=== PATIENT | female | born 1985 | race Caucasian/White ===

== ENCOUNTER 2019-06-20 07:09 | Day surgery (SDC) | payer OTHER ==
[~2019-06-20] VITALS: Ht 157.5 cm; Wt 109.8 kg
[~2019-06-20 07:09] MED LIST: SODIUM CHLORIDE 0.9% 1000ML 1,000 ML IV ONE
[2019-06-20 07:47] VITALS: BP 146/77
[2019-06-20 09:10] VITALS: BP 92/46
[2019-06-20 09:15] VITALS: BP 122/58
[2019-06-20 09:20] VITALS: BP 120/65
[2019-06-20 09:25] VITALS: BP 115/80
[2019-06-20 09:30] VITALS: BP 118/63
== END 2019-06-20 09:40 | disposition home or self-care (01) ==
LOC: DAH 07:09 → ENDO 07:09
PROVIDERS: ATTEND Surgery
DX: K21.9 Gastro-esophageal reflux disease without esophagitis (principal); K44.9 Diaphragmatic hernia without obstruction or gangrene; E78.00 Pure hypercholesterolemia, unspecified; E66.01 Morbid (severe) obesity due to excess calories; Z82.49 Family history of ischemic heart disease and other diseases of the circulatory system; Z68.41 Body mass index [BMI] 40.0-44.9, adult
CPT/HCPCS: 36415; 43235; 84703; A4606; J7030

== ENCOUNTER → 2019-06-30 | Outpatient (CLI) | payer OTHER ==
[~2019-06-30] VITALS: Ht 17.8 cm; Wt 112.9 kg
--- NOTE | 2019-06-30 11:43 | NUR ---
RD Bariatric Consult Visit 1/ Pt Obesity Grade II (BMI 39.0). Pt with Hx of high cholesterol and Gestational Diabetes. Pt currently on contraceptive but has plans for another child in the future. Patient is also taking vitamins at this time. Pt has also completed previous Bariatric program education courses through [facility], as per Coordinator. Pt seeking weight loss surgery for improved quality of life. Pt states has struggled with weight since childhood and states weight would fluctuate. Pt recollects dieting, diet shots and medications from [place] in attempt to lose weight, however attempts were not successful overall. Pt reports having Gestational diabetes with last as "wake up" call to have Bariatric procedure. Pt has friends who have had the procedure with success and recommendation for her as well. Pt believes this will be the boost she needs to aid in weight loss for prevention of disease. Pt is currently a [id number] mother with an infant (3mos.) and one toddler (3 years old). Pt prefers to cook meals at home, however has not had the time or energy recently after giving . Pt and usually order fast food and eat regularly at 's family-owned [employer] for dinner time meal. Pt also has no time or energy for physical activity. 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 Pt Postprocedure weight loss goal is to lose 100lbs. Pt has prepared for lifestyle modification through previous courses and Dietitian visits. 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 Pt with strong support system at home with , and also supportive family that lives locally. RD provided Healthy My Plate diet education as well as Healthy Meal planning with the Pt to encourage importance of developing long-lasting, healthful lifestyle habits that Pt is able to maintain. Pt has set goals to meet for the upcoming month to review during follow up visit: 1) Decreasing soft drink consumption to 1 drink per week 2) Decreasing pasta intake down to 1 meal per week 3) Eating less pastries by not having them in the house. Addendum: 06/30/19 at [address] RD Amended: Links added.
--- NOTE | 2019-07-06 15:28 | NUR ---
NIKOLAI Addendum Addendum Clarification: Patient Initial Assessment and Diet education, lasted 1 hour. Addendum: 07/06/19 at [address] RD Amended: Links added.
== END | disposition home or self-care (01) ==
LOC: DTH 09:23
PROVIDERS: ATTEND Surgery
DX: E66.9 Obesity, unspecified (principal); E11.9 Type 2 diabetes mellitus without complications
CPT/HCPCS: 97802

== ENCOUNTER → 2019-07-11 | Outpatient (CLI) | payer OTHER ==
[~2019-07-11] MED LIST changes: +ACET-66 PO; +NORE0.3518 PO; -SODIUM CHLORIDE 0.9% 1000ML 1,000 ML IV ONE
--- NOTE | 2019-07-11 11:14 | NUR ---
BARIATRIC PRE-OP DIET EDUCATION TIME OF VISIT: 10:30-11:[address] PROVIDED BARIATRIC MEAL PLANNING DIET EDUCATION WITH [employer]GHAN TRANSLATION. RD REVIEWED PRE-OP AND POST OP DIETARY PHASES WITH THE PATIENT. PT WITH MULTIPLE QUESTIONS. RD ANSWERED ALL OF PT QUESTIONS. PT VERBALIZED UNDERSTANDING. PT TO BEGIN PRE-OP DIET 07/18/19. RD TO FOLLOW UP POST-OP. RD PROVIDED CONTACT INFORMATION FOR PT TO CONTACT QUESTIONS OR CONCERNS ARISE.
== END | disposition home or self-care (01) ==
LOC: DTH 10:00
PROVIDERS: ATTEND Surgery
DX: E11.9 Type 2 diabetes mellitus without complications (principal); E66.09 Other obesity due to excess calories
CPT/HCPCS: 97803

== ENCOUNTER 2019-07-20 09:00 | Inpatient (IN) | payer OTHER ==
[~2019-07-20] VITALS: Ht 165.1 cm; Wt 110.8 kg
[2019-07-20 10:41] LABS: BASOPHILS % (AUTO) 0.7 % (0.0-5.0); HEMATOCRIT 44.3 % (36-48); LYMPHOCYTES % (AUTO) 33.8 % (21.0-51.0); MEAN CORPUSCULAR HEMOGLOBIN 30.6 pg (27.0-33.0); MEAN CORPUSCULAR HGB CONC 34.7 g/dL (32.0-36.0); MEAN CORPUSCULAR VOLUME 87.9 fL (79-99); MONOCYTES % (AUTO) 6.2 % (3.0-13.0); NEUTROPHILS % (AUTO) 57.3 % (40.0-77.0); PLATELET COUNT (AUTO) 260 K/uL (130-400); RED BLOOD CELL COUNT(AUTO) 5.04 MIL/uL (4.00-5.50); WHITE BLOOD COUNT (AUTO) 6.3 K/uL (4.8-10.8)
[2019-07-20] MEDS ORDERED: ACET-66 PO (10:52)
[2019-07-20] MEDS ORDERED: NORE0.3518 PO (10:52)
[2019-07-20 10:54] LABS: CREATININE 0.9 mg/dL (0.5-1.5); POTASSIUM 3.7 mmol/L (3.5-5.1)
[2019-07-20 11:00] VITALS: BP 110/69
[2019-07-25] VITALS (17 sets, daily range): BP systolic 116–144; BP diastolic 62–81
[2019-07-25] MEDS ORDERED: LACTATED RINGERS 1000ML 1,000 ML IV ONE (10:14)
[2019-07-25] MEDS: CEFAZOLIN SODIUM 1 GM VIAL ONE ×2 (10:26→11:56)
[2019-07-25] MEDS ORDERED: BUPIVACAINE/PF 0.5% 30ML VIAL ONE (10:59)
[2019-07-25] MEDS ORDERED: LIDOCAINE PF 2% 5ML ABBOJECT ONE (11:32)
[2019-07-25] MEDS ORDERED: PROPOFOL 10 MG/ML 20ML VIAL IV ONE (11:33)
[2019-07-25] MEDS ORDERED: ROCURONIUM 10MG/1ML SYR 10 MG/ML ML ONE ×2 (11:33→12:42)
[2019-07-25] MEDS ORDERED: FENTANYL CITRATE PF 50 MCG/1 ML 5ML AMP IV ONE ×2 (11:33→12:41)
[2019-07-25] MEDS ORDERED: MIDAZOLAM HCL 1 MG/ML 2ML VIAL ONE (11:33)
[2019-07-25] MEDS ORDERED: DEXAMETHASONE SOD PHOSPHATE 10MG/ML 1ML VIAL ONE (12:24)
[2019-07-25] MEDS ORDERED: GLYCOPYRROLATE 1 MG/5 ML SYRINGE ONE (12:24)
[2019-07-25] MEDS ORDERED: ONDANSETRON HCL 4 MG/2 ML VIAL ONE (12:24)
[2019-07-25] MEDS ORDERED: NEOSTIGMINE 5MG/5ML SYR IV ONE (12:24)
[2019-07-25] MEDS ORDERED: ESMOLOL HCL 10 MG/ML 10 ML VIAL ONE (12:43)
[2019-07-25] MEDS ORDERED: ONDANSETRON HCL 4 MG/2 ML VIAL IVP PRN (13:45)
[2019-07-25] MEDS: CEFAZOLIN SODIUM 1 GM VIAL IVP SCH ×2 (13:45→20:30)
[2019-07-25] MEDS ORDERED: MORPHINE SULFATE 4 MG/1ML SYG IV PRN (13:45)
[2019-07-25] MEDS: LACTATED RINGERS 1000ML 1,000 ML IV SCH (15:00)
[2019-07-25] MEDS: KETOROLAC TROMETHAMINE 30MG/ML IV PRN (18:21)
[2019-07-25] MEDS: MORPHINE SULFATE 2 MG/ML 1ML SYG IV PRN (20:31)
[2019-07-26 00:20] VITALS: BP 112/53
[2019-07-26] MEDS: LACTATED RINGERS 1000ML 1,000 ML IV SCH ×2 (02:42→16:12)
[2019-07-26 04:16] VITALS: BP 114/64
[2019-07-26] MEDS: CEFAZOLIN SODIUM 1 GM VIAL IVP SCH ×2 (05:06→14:47)
[2019-07-26] MEDS: MORPHINE SULFATE 2 MG/ML 1ML SYG IV PRN (05:09)
[2019-07-26 05:35] LABS: BASOPHILS % (AUTO) 0.2 % (0.0-5.0); HEMATOCRIT 38.1 % (36-48); LYMPHOCYTES % (AUTO) 7.7 % (21.0-51.0); MEAN CORPUSCULAR HEMOGLOBIN 30.6 pg (27.0-33.0); MEAN CORPUSCULAR VOLUME 87.4 fL (79-99); MONOCYTES % (AUTO) 5.1 % (3.0-13.0); NUCLEATED RED BLOOD CELLS 0.1 % (0.0-0.19); PLATELET COUNT (AUTO) 239 K/uL (130-400); RED BLOOD CELL COUNT(AUTO) 4.35 MIL/uL (4.00-5.50); RED CELL DISTRIBUTION WIDTH 12.8 % (11.0-15.5); WHITE BLOOD COUNT (AUTO) 14.1 K/uL (4.8-10.8)
[2019-07-26 05:49] LABS: CREATININE 0.8 mg/dL (0.5-1.5)
--- NOTE | 2019-07-26 07:40 | NUR ---
NOTE AAOX3. DENIES PAIN AT THIS TIME JUST SORENESS TO ABDOMEN. BBS CLEAR. NO N/V NO DISTRESS OR SOB. S/P LAPAROSCOPIC GASTRIC BYPASS. SMALL INCISIONS THROUGHOUT UPPER QUADRANTS ALL D/I EDGES APPROXIMATED OPEN TO AIR WITH DERMABOND. WAS STARTED ON PHASE I DIET AND SHE HAS BEEN TOLERATING. HAS BEEN DRINKING SMALL AMOUNTS FLUID/WATER THROUGHOUT THE MORNING. BOWEL SOUNDS HYPOACTIVE.
[2019-07-26 07:49] VITALS: BP 110/72
[2019-07-26] MEDS ORDERED: ENOXAPARIN SODIUM 30 MG/0.3 ML SQ SCH (09:00)
[2019-07-26] MEDS ORDERED: NORETHINDRONE 0.35 MG PO SCH (09:00)
--- NOTE | 2019-07-26 10:30 | NUR ---
note MISSY CIFUENTES CAME IN TO ASSESS PATIENT. SPOKE TO HER ABOUT COMPLIANCE WITH HER DIET AND NEED TO BE AMBULATING IN THE [place] AND PASSING GAS SO SHE COULD BE DISCHARGED HOME. SHE NEEDS TO PASS GAS AND DO BETTER PAIN JO. PATIENT HAD BEEN WALKING IN THE [place] EARLIER THIS AM ALREADY. WILL DISCONNECT HER SO SHE COULD AMBULATE AGAIN. CONTINUES WITHOUT N/V.
[2019-07-26] MEDS: KETOROLAC TROMETHAMINE 30MG/ML IV PRN (10:32)
[2019-07-26 11:26] VITALS: BP 120/77
[2019-07-26 16:08] VITALS: BP 119/73
--- NOTE | 2019-07-26 16:24 | NUR ---
RD Update Pt is POD 2. Pt reports tolerating Clear Liquids in small sips. Pt reviewed Post-Op Bariatric Diet education with Pt. Pt with multiple questions. RD answered all of Pt questions. Pt verbalized understanding. RD encouraged Pt to notify as questions or concerns arise. Pt has RD contact information. Please notify RD as nutritional concerns arise. Thank you.
--- NOTE | 2019-07-26 18:03 | NUR ---
INITIAL MET W PT AND - PT UP AND ABOUT WALKING IN THE [place], PAIN MINIMAL, HAS HELP AT HOME- WITH HER TWO YOUNG CHILDREN- 3 MOS AND 3 YEARS PARISA TO PROVIDE TRANPSORT, SAFE TO RETURN HOME Addendum: 07/26/19 at 1805 by JAMES MONTERO RN CM Amended: Links added.
== END 2019-07-26 17:48 | disposition home or self-care (01) | DRG 621 ==
LOC: DAHIP 07-25 09:05 → 4AH 07-25 14:42
PROVIDERS: ADMIT Surgery; ATTEND Surgery
PROC: 0D164ZA Bypass Stomach to Jejunum, Percutaneous Endoscopic Approach (ICD-10-PCS; principal; 2019-07-25 11:28)
DX: E66.01 Morbid (severe) obesity due to excess calories (principal); E78.00 Pure hypercholesterolemia, unspecified; K21.9 Gastro-esophageal reflux disease without esophagitis; Z82.49 Family history of ischemic heart disease and other diseases of the circulatory system; Z68.41 Body mass index [BMI] 40.0-44.9, adult
CPT/HCPCS: 36415; 71046; 80048; 84703; 85025; 86850; 86900; 86901; 94760; A4606; G0378; J0690; J1100; J1650; J1885; J2001; J2250; J2405; J2704; J2710; J3010; J3490; J7030; J7120